=== PATIENT | male | born 1930 | race Caucasian/White ===

== ENCOUNTER 2016-12-16 06:18 | Day surgery (SDC) | payer OTHER ==
[2016-12-16] VITALS (11 sets, daily range): BP systolic 120–180; BP diastolic 46–72; PULSE 59–72; RESP 16–46; Ht 167.6 cm; Wt 70.0 kg
[~2016-12-16] VITALS: Ht 167.6 cm; Wt 70.0 kg
[2016-12-16] MEDS ORDERED: SOD CHLORIDE 0.9% 1,000 ML IV SCH ×2 (07:00→09:35)
[2016-12-16] MEDS ORDERED: RAMI10CA48 PO (07:36)
[2016-12-16] MEDS ORDERED: ATOR40TA68 PO (07:36)
[2016-12-16] MEDS ORDERED: NIT3 SL (07:36)
[2016-12-16] MEDS ORDERED: ASPI-664 PO (07:36)
[2016-12-16] MEDS ORDERED: FURO20TA3 PO (07:36)
[2016-12-16] MEDS ORDERED: CARV25TA79 PO (07:36)
[2016-12-16 07:46] LABS: BASOPHILS % 0.8 % (0.0-2.0); EOSINOPHILS # 0.1 10^3/ul (0.0-0.5); EOSINOPHILS % 2.7 % (0.0-7.0); HEMATOCRIT 39.3 % (42.0-52.0); HEMOGLOBIN 12.6 g/dl (14.0-18.0); LYMPHOCYTES # 1.1 10^3/ul (0.8-2.9); LYMPHOCYTES % 21.7 % (15.0-51.0); MEAN CORPUSCULAR HEMOGLOBIN 29.9 pg (29.0-33.0); MEAN CORPUSCULAR HGB CONC 32.1 g/dl (32.0-37.0); MEAN CORPUSCULAR VOLUME 93.1 fl (82.0-101.0); MEAN PLATELET VOLUME 12.1 fl (7.4-10.4); MONOCYTE # 0.7 10^3/ul (0.3-0.9); MONOCYTES % 14.2 % (0.0-11.0); NEUTROPHILS % 60.4 % (39.0-77.0); PLATELET COUNT 141 10^3/UL (140-415); RED BLOOD COUNT 4.22 10^6/ul (4.70-6.10); RED CELL DISTRIBUTION WIDTH 13.5 % (11.5-14.5); WHITE BLOOD COUNT 5.2 10^3/ul (4.8-10.8)
[2016-12-16 07:54] LABS: INR 1.08; PARTIAL THROMBOPLASTIN TIME 29.1 Sec (25.0-35.0); PT RATIO 1.1
[2016-12-16 08:09] LABS: CALCIUM 9.2 mg/dl (8.4-10.2); CREATININE 1.05 mg/dl (0.61-1.24); POTASSIUM 4.1 mmol/L (3.5-5.1)
[2016-12-16] MEDS ORDERED: IODIXANOL LOCM 100 ML BTL ONE (08:29)
[2016-12-16] MEDS ORDERED: MIDAZOLAM 1 MG/ML 2 ML INJ ONE (08:29)
[2016-12-16] MEDS ORDERED: FENTAnyl 50 MCG/ML VIAL ONE (08:29)
[2016-12-16] MEDS ORDERED: LIDOCAINE 1% (MDV) 20 ML INJ ONE (08:29)
[2016-12-16] MEDS ORDERED: hydrALAzine 20 MG INJ ONE (09:08)
--- NOTE | 2016-12-16 09:47 | OPR ---
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 Right common femoral with mild diffuse disease. Right SFA ostium was ectatic and in the proximal segment at 30% stenosis, mid 20% stenosis and distal 20% stenosis. There was diffuse calcification seen throughout the SFA. Right popliteal was ectatic with mild diffuse disease. Below the knee, the anterior tibial was occluded proximally, the PT trunk and a 90% stenosis in the peroneal had a 90% stenosis. It appeared the PT was occluded after the bifurcation and reconstituted distally near the ankle. At the ankle, there was 2 vessels seen. Left common iliac was aneurysmal and severely tortuous. Left common femoral with mild diffuse disease. Left SFA proximal ostial portion was ectatic with a proximal 30-40% stenosis, mid 30%, distal 30% with diffuse calcification seen throughout the SFA. Left popliteal was ectatic with mild diffuse disease. The left anterior tibial was patent down to the mid vessel and then became a very small vessel subtotally occluded until the ankle. 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 Mid to distal vessel was patent with mild diffuse disease down to the ankle. Procedure Description Patient was brought to the [facility] after informed consent. Patient was prepped and draped as per protocol. Left femoral artery access was obtained with a micropuncture kit and a 5 Swazi sheath was placed. A 5 Swazi Omni flush was placed in the distal abdominal aorta. Distal abdominal aortogram was performed with bilateral lower examinee runoff using DSA imaging. On review of imaging, patient with aneurysmal segments throughout the bilateral iliacs and severe tortuosity. There was diffuse calcification seen in the bilateral SFAs. Below the knee, there was diffuse disease seen with 1-2 vessel runoff in the lower extremity. Given patient without rest pain and no ulcerations, and given patient with basically one vessel runoff to the foot, I do not believe the benefits of intervention below the knee outweigh the risks at the current time. Our Omni Flush was removed with plan of sheath removal in recovery for hemostasis. There were no immediate complications. Everardo Keane DO Dec 16, 2016 09:47
--- NOTE | 2016-12-16 09:51 | PDOCDIS ---
Discharge Instructions CONDITION Patient Condition: Good HOME CARE INSTRUCTIONS: Diet Instructions: Low Fat /Cholesterol ACTIVITY: Activity Restrictions: Slowly Increase Activity Avoid heavy lifting (Not more than 5 pounds 3 days) Do not Drive (3 days) Everardo Keane DO Dec 16, 2016 09:51
[2016-12-16] MEDS ORDERED: ONDANSETRON 4 MG INJ IV PRN (10:00)
[2016-12-16] MEDS ORDERED: AL HYDROX/MG HYDROX/SIMETH 30 ML CUP PO PRN (10:00)
[2016-12-16] MEDS ORDERED: ACETAMINOPHEN 325 MG TAB PO PRN (10:00)
[2016-12-16] MEDS ORDERED: hydrALAzine 20 MG INJ IV PRN (10:00)
--- NOTE | 2016-12-18 13:40 | RADRPT ---
Vent Rate: 54 bpm RR Interval: 0 msec DE Interval: 242 msec QRS Duration: 92 msec QT Interval: 458 msec QTC Interval: 434 msec P-R-T [place]: 44 - 9 - 177 degrees Sinus bradycardia with 1st degree AV block ST/T wave abnormality, consider inferolateral ischemia Abnormal ECG Electronically Signed By: Jas Gorman [id number]
== END 2016-12-16 16:16 | disposition home or self-care (01) ==
LOC: SDS 06:18 → CCL 06:22 → SDS 16:16
PROVIDERS: ATTEND Internal Medicine Cardiovascular Disease
DX: I73.9 Peripheral vascular disease, unspecified (principal)
CPT/HCPCS: 36246; 75630; 80048; 85025; 85610; 85730; 93005; C1769; C1887; C1894; J0360; J1644; J2250; J3010; Q9967